=== PATIENT | female | born 1990 ===

== ENCOUNTER → 2019-02-17 | Outpatient (CLI) | payer OTHER | END | disposition home or self-care (01) | LOC: LAB EV 08:23 → LAB SHORT 08:23 | DX: J35.8 Other chronic diseases of tonsils and adenoids (principal) | CPT/HCPCS: 87070 ==

== ENCOUNTER → 2019-09-27 | Outpatient (CLI) | payer OTHER | LOC: LAB 19:29 → LAB SHORT 19:29 | PROVIDERS: Physician Assistant | DX: Z12.4 Encounter for screening for malignant neoplasm of cervix (principal) | CPT/HCPCS: 87624; G0123 ==

== ENCOUNTER → 2020-07-13 | Outpatient (CLI) | payer OTHER ==
[2020-07-13 13:34] LABS: Follicle Stimulating Hormone 4.2 mIU/ml; Progesterone 1.45 ng/mL
[2020-07-16 17:08] LABS: FREE TESTOSTERONE(DIRECT) 2.2 pg/mL (0.0-4.2); TESTOSTERONE, SERUM 26 ng/dL (8-48)
== END ==
LOC: LAB 12:31 → LAB SHORT 12:31
PROVIDERS: Nurse Practitioner Adult Health
DX: E55.9 Vitamin D deficiency, unspecified (principal); E34.9 Endocrine disorder, unspecified; E61.1 Iron deficiency; G43.909 Migraine, unspecified, not intractable, without status migrainosus
CPT/HCPCS: 82306; 82626; 82670; 82728; 83001; 84144; 84270; 84402; 84403

== ENCOUNTER → 2021-01-14 | Outpatient (CLI) | payer OTHER | END | disposition home or self-care (01) | LOC: LAB EV 10:04 → LAB SHORT 10:04 | DX: R10.2 Pelvic and perineal pain (principal); D25.9 Leiomyoma of uterus, unspecified | CPT/HCPCS: 76830; 87070; 87205 ==